=== PATIENT | male | born 1940 | race Caucasian/White ===

== ENCOUNTER 2018-05-10 07:50 | Day surgery (SDC) | payer MEDICARE, BC ==
[~2018-05-10 07:50] MED LIST: DIPHENHYDRAMINE HCL 50 MG/ML VIAL ONE; EPINEPHRINE INJ 1 MG/10 ML DISP.SYRIN ONE; FLUMAZENIL INJ 0.5 MG/5 ML VIAL ONE; GLUCAGON,HUMAN RECOMB 1 MG INJ ONE; NALOXONE HCL INJ/PF 0.4 MG/1 ML SDV ONE; ONDANSETRON HCL INJ/PF 4 MG/2 ML SDV ONE
[2018-05-10] MEDS: MIDAZOLAM 2 MG/2 ML INJ ONE ×3 (09:00→09:16)
[2018-05-10] MEDS: FENTANYL CITRATE INJ/PF 100 MCG/2 ML AMPUL ONE ×2 (09:02→09:10)
--- NOTE | 2018-05-10 09:43 | Discharge Summary ---
Discharge Summary (SDC) - Discharge Final Diagnosis: 1. Remote history of colon polyps 2. Normal colonoscopy Date of Surgery: 05/10/18 Discharge Date: 05/10/18 Condition: Good Treatment or Instructions: [place] [id number] POST ENDOSCOPY DISCHARGE INSTRUCTIONS 1. Diet: Start clear liquids that a regular diet as tolerated. 2. Resume all preoperative medications. All oral anticoagulants and aspirins can be resumed 24 hours after procedure. 3. If a polypectomy was performed some bleeding per rectum may occur. This should stop within 3 days. If not, please contact the office. 4. If you had a colonoscopy you may experience some bloating and delayed return of normal bowel function for several days, your regular bowel movement pattern should resume within a week. 5. Please contact [facility] at to make an appointment with Dr. Gao for 1 to 3 weeks following procedure. 6. If you have any questions or concerns regarding your care,treatment plan or follow up, please contact our office. 7. Per clinical guidelines we recommend you undergo a repeat colonoscopy in 10 years or to be determined Referrals: RHONDA MOODY MD [Primary Care Provider] - Discharge Diet: As Tolerated Discharge Activity: Activity As Tolerated, Balance Activity w/Rest, No Driving Home Care Assistance: None Needed Report the Following to Your Physician Immediately: Shortness of Breath, Nausea , Vomiting, Increase in Pain, Fever over 101 Degrees, Unusual Bleeding, Increased Soreness, Large Clots, IV Site Infection Signs
--- NOTE | 2018-05-10 09:46 | Operative Report ---
Operative Report DATE OF SURGERY: 05/10/18 PREOPERATIVE DIAGNOSIS: Remote history of colon polyps POSTOPERATIVE DIAGNOSIS: Normal colonoscopy to cecum OPERATION: Total colonoscopy to cecum SURGEON: ASH MCCLAIN ANESTHESIA: Moderate Sedation TISSUE REMOVED OR ALTERED: None COMPLICATIONS: None ESTIMATED BLOOD LOSS: None INTRAOPERATIVE FINDINGS: Low PROCEDURE: Obtaining informed consent the patient was taken from the preoperative holding area to the main endoscopy suite where monitoring devices were attached to the patient. Plan and surgical timeout were conducted The patient was placed in the left lateral decubitus position with knees to chest. A perianal examination was performed. There was no visible or palpable anorectal pathology. Sphincter tone was felt to be normal. The flexible adult colonoscope was advanced through the anal rectal canal, all the way to the cecum. Visualization of the cecum was achieved and the ileocecal valve, the appendiceal orifice and transillumination of the anterior abdominal wall. This was a somewhat redundant colon. This was an excellent study on the well-prepped bowel. The colonoscope was withdrawn slowly and methodically checked and the mucosa carefully. There was no evidence of tumor, stricture, bleeding or polyp. There was no evidence of diverticuloses. The scope was slowly withdrawn through the anal rectal canal. Complete visualization of the rectum was achieved with photodocumentation. The scope was withdrawn to the patient's anus. The patient tolerated the procedure well and was taken to the recovery area in stable condition. Follow-up colonoscopy in 10 years, or determined by patient state of health at age 88
[2018-05-10 10:42] VITALS: BP 97/56
== END 2018-05-10 10:35 | disposition home or self-care (01) ==
LOC: END 07:50
PROVIDERS: ATTEND Surgery
DX: K62.5 Hemorrhage of anus and rectum (principal); Z86.010 Personal history of colon polyps; E03.9 Hypothyroidism, unspecified; Z79.899 Other long term (current) drug therapy; Z79.82 Long term (current) use of aspirin
CPT/HCPCS: 45378; J2250; J3010; G0121; J0171; J1200; J1610; J2310; J2405; J3490

== ENCOUNTER 2018-12-26 05:13 | Day surgery (SDC) | payer MEDICARE, BC ==
[2018-12-20 10:23] LABS: HEMATOCRIT 44.7 % (37.9-51.0); HEMOGLOBIN 15.6 g/dL (13.5-17.0); MEAN CORPUSCULAR HEMOGLOBIN 33.6 pg (27.0-33.4); MEAN CORPUSCULAR VOLUME 96 fl (80-97); PLATELET COUNT 157 10^3/uL (150-450); RED BLOOD COUNT 4.65 10^6/uL (4.35-5.55); RED CELL DISTRIBUTION WIDTH 13.3 % (11.5-14.0); WHITE BLOOD COUNT 4.7 10^3/uL (4.0-10.5)
[2018-12-20 10:43] LABS: ALANINE AMINOTRANSFERASE 22 U/L (21-72); ALBUMIN 4.8 g/dL (3.5-5.0); ALKALINE PHOSPHATASE 72 U/L (38-126); AMYLASE 64 U/L (30-110); ANION GAP 9 (5-19); ASPARTATE AMINO TRANSFERASE 36 U/L (17-59); BILIRUBIN,DIRECT 0.3 mg/dL (0.0-0.4); BILIRUBIN,TOTAL 1.1 mg/dL (0.2-1.3); BLOOD UREA NITROGEN 16 mg/dL (7-20); CALCIUM 9.8 mg/dL (8.4-10.2); CARBON DIOXIDE 27 mmol/L (22-30); CHLORIDE 108 mmol/L (98-107); GLUCOSE 89 mg/dL (75-110); POTASSIUM 4.9 mmol/L (3.6-5.0); TOTAL PROTEIN 7.7 g/dL (6.3-8.2)
--- NOTE | 2018-12-20 13:20 | EKG REPORT ---
SEVERITY:- OTHERWISE NORMAL ECG - SINUS RHYTHM VENTRICULAR PREMATURE COMPLEX LOW VOLTAGE IN FRONTAL LEADS : Confirmed by: Jordan Gama MD 20-Dec-2018 13:20:08
[~2018-12-26 05:13] MED LIST changes: +ACETAMINOPHEN 325 MG TABLET PO PRN; +CEFAZOLIN 1 GM/D5W RTU 1 GM/50 ML RTUPB IV ONE; +CEFAZOLIN 1 GM/D5W RTU 1 GM/50 ML RTUPB IV PRN; -DIPHENHYDRAMINE HCL 50 MG/ML VIAL ONE; -EPINEPHRINE INJ 1 MG/10 ML DISP.SYRIN ONE; -FLUMAZENIL INJ 0.5 MG/5 ML VIAL ONE; -GLUCAGON,HUMAN RECOMB 1 MG INJ ONE; +LACTATED RINGERS 1000 ML IV PRN; +LIDOCAINE 0.5% INJ-PF (5 MG/ML) 50 ML SDV SUBCUT PRN; -NALOXONE HCL INJ/PF 0.4 MG/1 ML SDV ONE; -ONDANSETRON HCL INJ/PF 4 MG/2 ML SDV ONE
[2018-12-26] MEDS ORDERED: FENTANYL CITRATE INJ/PF 100 MCG/2 ML AMPUL ONE (06:40)
[2018-12-26] MEDS ORDERED: MIDAZOLAM 2 MG/2 ML INJ ONE (06:40)
[2018-12-26] MEDS ORDERED: PROMETHAZINE HCL INJ 25 MG/1 ML VIAL ONE (06:40)
[2018-12-26] MEDS ORDERED: EPHEDRINE SULFATE INJ 50 MG/1 ML AMPULE ONE (06:40)
[2018-12-26] MEDS ORDERED: LIDOCAINE 2% INJ-PF (20 MG/ML) 10 ML AMPUL ONE (06:40)
[2018-12-26] MEDS ORDERED: ONDANSETRON HCL INJ/PF 4 MG/2 ML SDV ONE (06:40)
[2018-12-26] MEDS ORDERED: ACETAMINOPHEN 1,000 MG/100 ML RTUPB IV ONE (06:41)
[2018-12-26] MEDS ORDERED: PROPOFOL INJ 200 MG/20 ML VIAL IV ONE (06:41)
[2018-12-26] MEDS ORDERED: BUPIVACAINE HCL 0.25 % INJ/PF (2.5 MG/1 ML) 30 ML VIAL ONE (07:15)
[2018-12-26] MEDS ORDERED: MEPERIDINE HCL/PF INJ 25 MG/1 ML DISP.SYRIN IV PRN (08:06)
[2018-12-26] MEDS ORDERED: PROMETHAZINE HCL INJ 25 MG/1 ML VIAL IV PRN ×2 (08:06)
[2018-12-26] MEDS ORDERED: ROCURONIUM BROMIDE INJ 50 MG/5 ML VIAL IV ONE (08:06)
[2018-12-26] MEDS ORDERED: FENTANYL CITRATE INJ/PF 100 MCG/2 ML AMPUL IV PRN ×3 (08:06)
[2018-12-26] MEDS ORDERED: DIPHENHYDRAMINE HCL 50 MG/ML VIAL IV PRN (08:06)
[2018-12-26] MEDS ORDERED: MORPHINE SULFATE 10 MG/ML INJ IV PRN (08:06)
[2018-12-26] MEDS ORDERED: SUCCINYLCHOLINE CHLORIDE INJ 200 MG/10 ML VIAL ONE (08:06)
[2018-12-26] MEDS ORDERED: HYDROMORPHONE HCL INJ/PF 2 MG/ML AMPULE ONE (08:58)
--- NOTE | 2018-12-26 09:44 | Discharge Summary ---
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 General Information: a. DO NOT DRIVE a car or operate dangerous machinery for 3-4 days or while taking narcotic pain pills. b. DO NOT consume alcohol, tranquilizers, sleeping medications or any non- prescribed medications for 24 hours unless approved by your doctor or as long as taking narcotic prescription medications. c. DO NOT make important decisions or sign any important papers for the first 24 hours after surgery. d. When discharged home the same day of surgery have a responsible person with you for the first night. 2. Activity Restrictions: 2 weeks weeks. a. NO heavy lifting, straining abdominal muscles, bending over a lot, yard work, house work, or sports for [address] NOT [address] for 3-4 days or while taking prescription pain medication. c. It is fine to go for walks, up and down steps, ride in a car. d. Elevate your head when sleeping/resting. 3. Treatment: a. You may shower 24 hours after surgery, no baths or swimming for 2 weeks. Remove band-aids or dressings before shower but leave paper strips (steri- strips) on the skin to fall off on their own. If still on at postoperative visit they will be removed then. b. Drainage of fluid or blood is not unusual from an incision. If occurs, you can clean with peroxide and cotton ball daily and cover with dry gauze until the wound seals. c. If a lot of bleeding occurs, you can hold pressure with a gauze or cloth over the site for 10 minutes and it will usually stop. If bleeding continues you will need to call for possible evaluation in office or emergency room. 4. Medications: a. _Tramadol_ may be taken for pain as needed, one tablets every 6 hours. Stop the narcotic when able since you cannot take it and drive, and they cause constipation. You may switch to plain Tylenol as you transition from the narcotic. b. You should resume all normal medications unless a change is specified by your doctors. 5. Diet: Begin with clear liquids and may progress to your normal diet if not nauseated. No high fat, high protein foods the day of surgery. 6. The following may occur after laparoscopic surgery: a. Shoulder or upper back ache from retained gas that should resolve in 1-2 days b. Soreness and bruising at incision sites will resolve with time. c. Scrotal swelling (labia in women) and bruising is often seen after hernia surgery. d. Sore throat e. Fatigue may last days to weeks. f. Difficulty urinating may occur and may need to come into emergency room for urinary catheter placement. 7. Notify Physician If: a. Worsening or pain not improved with pain medication b. Persistent nausea and vomiting c. Fever above 101 d. Persistent bleeding or swelling at operative site e. Unable to urinate and uncomfortable bladder 6-8 hours after surgery 8..Follow Up Care: a. Schedule a follow up appointment with your doctor for 2 weeks. In the event of any postoperative problems or questions or you may call the office during business hours or the On-Call physician evenings and weekends at [facility]. [facility] I understand the instructions for my postoperative care as described above and a copy has been given to me. Patient/Significant Other Witness Date Prescriptions: Tramadol HCl [Ultram 50 mg Tablet] 50 mg PO Q6 PRN #20 tablet PRN Reason: Referrals: RANDI CANCHOLA MD [Primary Care Provider] - Discharge Diet: Other (Comments) - Small bland portions Discharge Activity: No Lifting Over 10 Pounds, No Lifting/Push/Pulling, Walk Frequently Report the Following to Your Physician Immediately: Nausea, Vomiting, Increase in Pain, Fever over 101 Degrees, Unusual Bleeding, Redness, Swelling, Warmth, Drainage-Foul Smelling
[2018-12-26] MEDS ORDERED: OXYCODONE-ACETAMINOPHEN 5-325 MG TABLET PO PRN (09:50)
--- NOTE | 2018-12-26 10:01 | Operative Report ---
Operative Report DATE OF SURGERY: 12/26/18 PREOPERATIVE DIAGNOSIS: 1. Cholecystitis with cholelithiasis. 2. Regurgitati on. 3. 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 Laparoscopic cholecystectomy. 2. Esophagogastroduodenoscopy, with biopsies of the distal esophagus, proximal stomach, distal stomach. 3. Extramural biopsies of the proximal stomach, lesser curve SURGEON: ASH GAO 1ST PLACEMENT MANAGER: PAUL MAXWELL ANESTHESIA: GA TISSUE REMOVED OR ALTERED: Gallbladder; multiple mucosal biopsies of the esophagus and stomach; serosal biopsies of the proximal stomach COMPLICATIONS: None ESTIMATED BLOOD LOSS: 5 cc INTRAOPERATIVE FINDINGS: See below PROCEDURE: After obtaining informed consent, the patient was taken to the operating room. General Anesthesia was induced; the arms were extended, and the abdomen was exposed, and prepped and draped in a sterile fashion. Instrumentation was set up for laparoscopic cholecystectomy. Surgical plan and surgical timeout were conducted. A vertical incision was made above the umbilicus, and a verres needle was inserted uneventfully into the peritoneal cavity. Pneumoperitoneum was established. The verres needle was removed and a 5 mm trocar was inserted and a 5 mm flexible laparoscope was inserted. Visualization of the peritoneal cavity confirmed safe uneventful entry. Under direct visualization 3 additional 5 mm ports were established, one in the subxiphoid position and second in the subcostal position. The findings were significant for a very scarred and shrunken somewhat lobulated small gallbladder. Photos were taken. Adhesions between the gallbladder and the gastroduodenal area down between a combination of gentle traction and electrocautery dissection. The gallbladder was now removed in a top down fashion using electrocautery. There was no evidence of neovascularity or true mass-effect to suggest malignancy. Of note the right and left lobes of the gallbladder aged but otherwise normal. Eventually the gallbladder was suspended by the cystic artery and the cystic duct. Multiple photos were taken. We got around the critical structures in a circumferential fashion. The cystic artery was mobilized, clipped twice proximally once distally divided with scissors. We now have the specimen suspended solely by the cystic duct. Because of its moderately thickened caliber, we elected to secure the duct with a 0 PDS loop suture. The duct was divided. Photos of the cystic duct and artery stumps obtained. The gallbladder was then placed in Endobag and brought out the patient to the supraumbilical port site after stretching the fascial defect We checked the peritoneal Cavity carefully looking for any evidence of metastatic disease. Serosal surfaces of the viscera, and parietal surfaces all appeared normal. The pelvis was inspected with the patient in Trendelenburg position and there is no pathology here. There were some adhesions between the sigmoid colon and the anterior abdominal wall. However the significant findings were of a distorted stomach, particularly the lesser curvature going from the GE junction down to the pylorus. Multiple photos were taken. It was difficult to ascertain whether the mass was endoluminal, and mural, or even retrogastric. An attempt was made to elevate the gastrocolic omentum, and inspect the posterior surface of the stomach but we encountered some bleeding so this approach was aborted. Dr. Gao now scrubbed down proceeded to perform the planned upper endoscopy. The adult flexible upper endoscope was advanced to the oropharynx by Dr. Gao, down the esophagus into the stomach and eventually into the duodenum. The findings are significant for very distorted distal esophagus at the GE junction, and diffuse edema, with irregularity of the stomach lining particularly along the lesser curve. Biopsies of the lesser curve proximally and distally were obtained with a cold forceps device and labeled proximal di stal gastric antrum. There was no true intraluminal mass or polyp. There was some retained gastric contents. Traversing the pylorus was somewhat challenging but eventually got through the pylorus into the first and second portions of the duodenum. The pylorus distally, and going into the duodenum all appeared unaffected by probable malignancy. There was no true obstruction of the pylorus. Multiple photos of the stomach were obtained. The duodenum and stomach were decompressed. Withdrawn the scope to the GE junction which had an irregular ratty appearance, we obtained a cold forceps biopsy of the mucosa. Eating was minimal. The abnormality of the distal esophagus extended several centimeters proximally, then the mid and proximal thirds of the stomach appeared grossly normal. There is no evidence of varices. The hypopharynx, and the larynx appeared grossly scope was withdrawn. We now returned to the abdominal cavity with our laparoscope. Dr. Parker came into the operating room and rendered an opinion with regards to the intraoperative findings. He suggested the patient likely had gastric cancer, lienitis plastica, and recommended extraluminal, that is serosal biopsies of the affected areas. Using the sharp, biting RATING OFFICER [employer] forceps, we obtained multiple cold forceps biopsies of the proximal, lesser curve, anterior surface of the stomach at the site of the most affected pathology. Bleeding was minimal. One small specimen was sent for frozen section, and the rest of the small pieces sent for permanent analysis. At this point felt the operation was complete. Of note the stroke curve, and retroperitoneum, had a very fixed configuration photos were taken of this area. The tissue was very tethered along the peritoneal fat on top of the pancreas. Sponge and needle counts are correct. All ports removed under direct visualization, pneumoperitoneum evacuated wounds closed with 0 Vicryl 3-0 Vicryl benzoin and Steri-Strips. The patient was extubated, and taken to the recovery room in stable condition. At the conclusion of the operation, we did get a phone call from Dr. Poe, the pathologist, who analyzed the frozen section specimen and reviewed with Dr. Hooper. The consensus was a poorly differentiated malignancy.
[2018-12-26 13:30] VITALS: BP 134/82
== END 2018-12-26 12:30 | disposition home or self-care (01) ==
LOC: OROUT 05:13
PROVIDERS: ATTEND Surgery
DX: C16.5 Malignant neoplasm of lesser curvature of stomach, unspecified (principal); C16.0 Malignant neoplasm of cardia; K80.10 Calculus of gallbladder with chronic cholecystitis without obstruction; D13.5 Benign neoplasm of extrahepatic bile ducts; K29.50 Unspecified chronic gastritis without bleeding; K62.5 Hemorrhage of anus and rectum; E03.9 Hypothyroidism, unspecified; Z79.899 Other long term (current) drug therapy
CPT/HCPCS: 93010; 93005; 36415 ×2; 82150; 84132; 85027; 80076; 80048; 88342 ×2; 88341 ×2; 88304 ×2; 88305 ×2; 88331 ×2; 43239; 47562; J2250; J0690; J3490 ×3; J3010; J1170; J2550; J0330; J2405; J2704; J0131; 790

== ENCOUNTER → 2018-12-28 | Outpatient (CLI) | payer MEDICARE, BC ==
--- NOTE | 2018-12-28 14:37 | RADIOLOGY REPORT (SQ) ---
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 TECHNIQUE: CT scan of the chest performed using helical scanning technique with dynamic intravenous contrast injection. Images reviewed with lung, soft tissue and bone windows. Reconstructed coronal and sagittal MPR and MIP images reviewed. All images stored on PACS. All CT scanners at this facility use dose modulation, iterative reconstruction, and/or weight based d osing when appropriate to reduce radiation dose to as low as reasonably achievable (ALARA). [facility]: Dose Right [facility]: CareDose [facility]: Dose Right [facility]: Teradose 4D [facility]: [employer] CONTRAST TYPE AND DOSE: See separate report of the same date. RENAL FUNCTION: See separate report. RADIATION DOSE: . LIMITATIONS: None. FINDINGS: LUNGS AND PLEURA: 6 mm nodule in the right apex. No effusions. HILAR AND MEDIASTINAL STRUCTURES: Patulous esophagus. Gastroesophageal reflux. No identified masses or abnormal nodes. HEART AND VASCULAR STRUCTURES: No aneurysm or dissection. No central pulmonary emboli. No pericardi al effusion. HARDWARE: None in the chest. UPPER ABDOMEN: See separate report of the CT of the abdomen. THYROID AND OTHER SOFT TISSUES: No masses. No adenopathy. BONES: Nothing acute. OTHER: No other significant finding. IMPRESSION: 6 mm right apical pulmonary nodule. TECHNICAL DOCUMENTATION: JOB ID: [id number] Quality ID # [id number]: Final reports with documentation of one or more dose reduction techniques (e.g., Au tomated exposure control, adjustment of the mA and/or kV according to patient size, use of iterative reconstruction technique) 2010 [employer]- All Rights Reserved Reading location - IP/workstation name: [email or web address]-
--- NOTE | 2018-12-28 14:42 | RADIOLOGY REPORT (SQ) ---
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 TECHNIQUE: CT scan of the abdomen and pelvis performed with intravenous and oral contrast using jazmín maricruz scanning technique with dynamic intravenous contrast injection. Images reviewed with lung, soft t issue, and bone windows. Reconstructed coronal and sagittal MPR images reviewed. Delayed images for e valuation of the urinary system also acquired. All images stored on PACS. All CT scanners at this facility use dose modulation, iterative reconstruction, and/or weight based d osing when appropriate to reduce radiation dose to as low as reasonably achievable (ALARA). [facility]: Dose Right [facility]: CareDose [facility]: Dose Right [facility]: Teradose 4D [facility]: [employer] CONTRAST TYPE AND DOSE: contrast/concentration: Isovue 350.00 mg/ml; Total Contrast Delivered: 73.0 ml; Total Saline Delivered: 66.0 ml RENAL FUNCTION: GFR > 60. RADIATION DOSE: CT Rad equipment meets quality standard of care and radiation dose reduction techniq ues were employed. CTDIvol: 4.4 - 4.6 mGy. DLP: 691 mGy-cm. . LIMITATIONS: None. FINDINGS: LOWER CHEST: Known abnormality in the distal esophagus. See separate report of the same d ate. LIVER: Normal size. No masses. No dilated ducts. SPLEEN: Normal size. No focal lesions. PANCREAS: No masses. No significant calcifications. No adjacent inflammation or peripancreatic fluid collections. Pancreatic duct not dilated. GALLBLADDER: Surgically absent. ADRENAL GLANDS: No significant masses or asymmetry. RIGHT KIDNEY AND URETER: No solid masses. No significant calcifications. No hydronephrosis or hyd roureter. LEFT KIDNEY AND URETER: No solid masses. No significant calcifications. No hydronephrosis or hydr oureter. AORTA AND VESSELS: No aneurysm. No dissection. Renal arteries, SMA, celiac without stenosis. RETROPERITONEUM: No retroperitoneal adenopathy, hemorrhage or masses. BOWEL AND PERITONEAL CAVITY: Pneumoperitoneum status post recent laparoscopic surgery with biopsies o f the gastroesophageal junction and lesser curvature of the stomach. No ascites. No peritoneal impl ants. APPENDIX: Not visualized. PELVIS: No significant masses. Normal bladder. No free fluid. ABDOMINAL WALL: Subcutaneous gas. BONES: Nothing acute. OTHER: No other significant finding. IMPRESSION: No evidence of metastatic disease. TECHNICAL DOCUMENTATION: JOB ID: [id number] Quality ID # [id number]: Final reports with documentation of one or more dose reduction techniques (e.g., Au tomated exposure control, adjustment of the mA and/or kV according to patient size, use of iterative reconstruction technique) 2010 [employer]- All Rights Reserved Reading location - IP/workstation name: [email or web address]
== END ==
LOC: RAD 13:14
PROVIDERS: ATTEND Surgery
DX: C16.9 Malignant neoplasm of stomach, unspecified (principal); R91.1 Solitary pulmonary nodule
CPT/HCPCS: 71260; 74177

== ENCOUNTER → 2019-01-06 | Outpatient (CLI) | payer MEDICARE, BC ==
--- NOTE | 2019-01-07 10:15 | RADIOLOGY REPORT (SQ) ---
EXAM DESCRIPTION: PET CT SKULL/THIGH COMPLETED DATE/TIME: 01/06/2019 8:04 pm REASON FOR STUDY: CARDIA NEOPLASM C16.0 MALIGNANT NEOPLASM OF CARDIA COMPARISON: CT chest abdomen pelvis 12/28/2017 RADIONUCLIDE AND DOSE: 11.9 mCi F18 FDG The route of agent administration: Intravenous FASTING BLOOD SUGAR: 81 mg/dl CONTRAST TYPE AND DOSE: No CT contrast given. TECHNIQUE: Blood glucose level was verified. Above dose of FDG was injected intravenously. 2-D seg mented attenuation correction images were obtained from the base of the skull to the midthighs. Nonc ontrast CT images were obtained for attenuation correction and fusion with emission images. CT image s were performed without oral or intravenous contrast and are not sensitive for parenchymal lesions. A series of overlapping emission PET images were obtained. Images reviewed and manipulated at [facility] work station by the radiologist. Images stored on PACS. LIMITATIONS: None. FINDINGS: HEAD AND NECK: No areas of abnormal metabolic activity in the soft tissues of the head and neck. CHEST: There is diffuse abnormal circumferential wall thickening and luminal narrowing of the distal esophagus at at the esophageal hiatus, extending into the gastric cardia. Increased activity of the distal esophagus/gastric cardia with SUV 2.1 to 3.4 worrisome for malignancy. There is a punctate fo cus of increased activity 4.9 SUV at the GE junction which could represent more aggressive focal tumo r, or possibly small mucosal ulceration with inflammatory reaction. No metabolically active lymph nodes in the mediastinum or upper abdomen in the region of the GE junct ion. There is an air-fluid level in the esophagus related to distal esophageal stenosis. 7 to 8 mm scar is present in the right lung apex axial image 76, with SUV below blood pool of 0.5. ABDOMEN AND PELVIS: There is minimal activity at the gallbladder fossa, along the liver adjacent to t he surgical bed with SUV 4.9. Patient is post recent cholecystectomy. This is of uncertain clinical significance. Expected physiologic activity is present in the genitourinary system and bowel. PROXIMAL LOWER EXTREMITIES: No areas of abnormal metabolic activity in the soft tissues of the lower extremities. BONES: No abnormal metabolic activity in the visualized skeleton. ADDITIONAL CT FINDINGS: No additional significant findings on the noncontrast CT images. OTHER: Liver background activity 1.8 SUV. Blood pool background activity 1.6 SUV. IMPRESSION: Malignancy at the GE junction/ gastric cardia. No hypermetabolic regional lymph nodes. No PET-CT evidence of distant metastatic disease. TECHNICAL DOCUMENTATION: JOB ID: [id number] [employer]- All Rights Reserved Reading location - IP/workstation name: [email or web address]
== END ==
LOC: RAD 17:24
PROVIDERS: ATTEND Internal Medicine
DX: C16.0 Malignant neoplasm of cardia (principal)
CPT/HCPCS: 78815; A9552

== ENCOUNTER 2019-01-17 08:23 | Day surgery (SDC) | payer MEDICARE, BC ==
[~2019-01-17 08:23] MED LIST changes: -CEFAZOLIN 1 GM/D5W RTU 1 GM/50 ML RTUPB IV ONE; -LACTATED RINGERS 1000 ML IV PRN; -LIDOCAINE 0.5% INJ-PF (5 MG/ML) 50 ML SDV SUBCUT PRN
[2019-01-17] MEDS ORDERED: CEFAZOLIN 1 GM/D5W RTU 1 GM/50 ML RTUPB IV ONE (08:29)
[2019-01-17 08:47] LABS: HEMATOCRIT 40.9 % (37.9-51.0); HEMOGLOBIN 14.3 g/dL (13.5-17.0); MEAN CORPUSCULAR VOLUME 97 fl (80-97); PLATELET COUNT 159 10^3/uL (150-450); RED BLOOD COUNT 4.21 10^6/uL (4.35-5.55); RED CELL DISTRIBUTION WIDTH 13.4 % (11.5-14.0); WHITE BLOOD COUNT 5.7 10^3/uL (4.0-10.5)
[2019-01-17] MEDS ORDERED: BACITRACIN INJ 50,000 UNIT VIAL ONE (10:16)
[2019-01-17] MEDS ORDERED: LIDOCAINE 0.5% INJ-PF (5 MG/ML) 50 ML SDV ONE (10:16)
[2019-01-17] MEDS ORDERED: FENTANYL CITRATE INJ/PF 100 MCG/2 ML AMPUL ONE (10:29)
[2019-01-17] MEDS ORDERED: MIDAZOLAM 2 MG/2 ML INJ ONE (10:29)
--- NOTE | 2019-01-17 12:12 | Discharge Summary ---
Discharge Summary (SDC) - Discharge Final Diagnosis: Gastric carcinoma Date of Surgery: 01/17/19 Discharge Date: 01/17/19 Condition: Good Treatment or Instructions: Patient may use catheter at any time; return to clinic to follow-up with LAURA Schaeffer in 1-2 weeks; may shower in 48 hours; Steri-Strips to fall off on own; take Tylenol or Motrin as needed pain Referrals: RANDI CANCHOLA MD [Primary Care Provider] - Discharge Activity: Activity As Tolerated Home Care Assistance: None Needed Report the Following to Your Physician Immediately: Shortness of Breath, Increase in Pain, Fever over 101 Degrees
--- NOTE | 2019-01-17 12:15 | Operative Report ---
Operative Report DATE OF SURGERY: 01/17/19 PREOPERATIVE DIAGNOSIS: Gastric carcinoma POSTOPERATIVE DIAGNOSIS: Same OPERATION: 1. Focused ultrasound of the right neck. 2. Ultrasound directed insertion of single-lumen Soovcl-b-Wgkz catheter with port in right subclavian p osition. 3. interpretation of intraoperative fluoroscopy SURGEON: ASH MCCLAIN ANESTHESIA: Moderate Sedation TISSUE REMOVED OR ALTERED: See below COMPLICATIONS: None ESTIMATED BLOOD LOSS: Scant INTRAOPERATIVE FINDINGS: See below PROCEDURE: The patient was taken from the ambulatory surgery area to the cardiac catheterization lab where appropriate level of sedation was initiated with the patient in the supine position after vital signs assessed. The right neck and chest wall were prepped and draped in sterile fashion. Surgical plan surgical timeout were conducted. The right neck was anesthetized with 1% plain lidocaine. Using Seldinger technique with ultrasound as a guide, the right internal jugular difficulty and a micro wire threaded into position A suitable site for placement of the port was then chosen in the right subclavian position. The skin was anesthetized with 1% plain lidocaine, 3 and half centimeters incision was made with the 15 blade, and the deep subcutaneous port pocket developed large enough to accommodate a single-chamber port using electrocautery and blunt dissection. The single lumen 9 Cypriot catheter was trimmed to the appropriate length, tunneled between the 2 incisions, attached to the port, and the port tucked into the right subclavian position. The micro wire was now switched over to conventional 0.030 wire using the micro- introducer sheath. Now under fluoroscopic guidance, the dilator and sheath were threaded over the guidewire, dilator and wire removed, catheter threaded into the right internal jugular vein, and strip away sheath removed uneventfully. Fl uoroscopically the tip of the catheter was in the right atrium. There was no evidence of ectopy. There is no kinking of the catheter. Catheter was aspirated and flushed with dilute heparinized saline. Wounds closed with multiple 3-0 Vicryl sutures, benzoin and Steri-Strips. Patient tolerated procedure well. Supine chest x-ray obtained for the record showing no pneumothorax. Patient was recovered in the ambulatory area uneventfully
[2019-01-17 13:39] VITALS: BP 133/78
--- NOTE | 2019-01-17 15:16 | RADIOLOGY REPORT (SQ) ---
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 FLUOROSCOPY TIME: Less than 3 seconds 1 digital radiographic images saved to PACS. TECHNIQUE: Intra-operative images acquired during surgical procedure to evaluate progress. NUMBER OF IMAGES: 1 digital fluoro image LIMITATIONS: None. FINDINGS: 1 digital fluoro image was acquired during placement of a right-sided permanent central li ne with the tip in the superior vena cava. Please see the operative report for further details IMPRESSION: Intra procedural imaging and fluoro COMMENT: Quality ID [id number]: Final reports for procedures using fluoroscopy that document radiation exp osure indices, or exposure time and number of fluorographic images (if radiation exposure indices are not available) Please consult full operative report of the attending physician for description of the procedure. TECHNICAL DOCUMENTATION: JOB ID: [id number] [employer] All Rights Reserved Reading location - IP/workstation name: [email or web address]
--- NOTE | 2019-01-17 15:16 | RADIOLOGY REPORT (SQ) ---
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 FLUOROSCOPY TIME: Less than 3 seconds 1 digital radiographic images saved to PACS. TECHNIQUE: Intra-operative images acquired during surgical procedure to evaluate progress. NUMBER OF IMAGES: 1 digital fluoro image LIMITATIONS: None. FINDINGS: 1 digital fluoro image was acquired during placement of a right-sided permanent central li ne with the tip in the superior vena cava. Please see the operative report for further details IMPRESSION: Intra procedural imaging and fluoro COMMENT: Quality ID [id number]: Final reports for procedures using fluoroscopy that document radiation exp osure indices, or exposure time and number of fluorographic images (if radiation exposure indices are not available) Please consult full operative report of the attending physician for description of the procedure. TECHNICAL DOCUMENTATION: JOB ID: [id number] [employer]- All Rights Reserved Reading location - IP/workstation name: [email or web address]
== END 2019-01-17 13:10 | disposition home or self-care (01) ==
LOC: CCL 08:23
PROVIDERS: ATTEND Surgery
DX: C16.0 Malignant neoplasm of cardia (principal); R11.10 Vomiting, unspecified; E03.9 Hypothyroidism, unspecified; K62.5 Hemorrhage of anus and rectum; Z40.9 Encounter for prophylactic surgery, unspecified; Z86.010 Personal history of colon polyps; Z01.818 Encounter for other preprocedural examination; Z79.899 Other long term (current) drug therapy
CPT/HCPCS: 36415; 85027; 36561; 76937; 77001; C1752; J2250; J3490 ×2; J0690; J3010; J1644

== ENCOUNTER → 2019-04-25 | Outpatient (CLI) | payer MEDICARE, BC ==
--- NOTE | 2019-04-25 12:55 | RADIOLOGY REPORT (SQ) ---
EXAM DESCRIPTION: HIP BILATERAL COMPLETED DATE/TIME: 04/25/2019 12:08 pm REASON FOR STUDY: M25.559 COMPARISON: None. NUMBER OF VIEWS: Two views. TECHNIQUE: AP pelvis and additional frog-leg view of the right and left hip. LIMITATIONS: None. FINDINGS: MINERALIZATION: Normal. PRIMARY HIP: No fracture or dislocation. No worrisome bone lesions. OPPOSITE HIP: No fracture or dislocation. No worrisome bone lesions. PUBIS AND ISCHIUM: No fracture. PELVIS: No fracture. SACRUM: No fracture or dislocation. No worrisome bone lesions. LOWER LUMBAR SPINE: No fracture or dislocation. No worrisome bone lesions. No significant disc disea se. SOFT TISSUES: No findings. OTHER: No other significant finding. IMPRESSION: NEGATIVE STUDY OF THE RIGHT AND LEFT HIPS AND PELVIS. NO RADIOGRAPHIC EVIDENCE OF ACUTE INJURY. TECHNICAL DOCUMENTATION: JOB ID: [id number] [employer]- All Rights Reserved Reading location - IP/workstation name: [email or web address]
== END ==
LOC: RAD 11:34
PROVIDERS: ATTEND Internal Medicine
DX: M25.559 Pain in unspecified hip (principal)
CPT/HCPCS: 73522

== ENCOUNTER 2019-07-04 12:58 | Emergency (ER) | payer MEDICARE, BC ==
[2019-07-04] MEDS ORDERED: NORMAL SALINE 1000 ML 1,000 ML IV ONE ×2 (13:20→17:24)
[2019-07-04] MEDS ORDERED: ONDANSETRON HCL INJ/PF 4 MG/2 ML SDV IV ONE (13:20)
--- NOTE | 2019-07-04 13:21 | ER Document Report ---
ED Medical Screen (RME) - General Chief Complaint: Post Surgical Pain Stated Complaint: POST SURGICAL COMPLICATION Time Seen by Provider: 07/04/19 13:15 Primary Care Provider: RANDI CANCHOLA MD [Primary Care Provider] - Follow up as needed Mode of Arrival: Ambulatory Information source: Patient Notes: Patient is a 71-year-old male with stomach cancer presenting to the emergency department chief complaint of vomiting. Patient reports he was discharged yesterday from [place] after having part of his stomach removed and part of his esophagus removed for cancer. He reports he started dry heaving and then vomiting early this morning. He has not taken any medication for this. Exam: Patient appears pale, no acute distress noted. Speaking in full complete sentences, answering all questions appropriately. No active vomiting noted in triage. I have greeted and performed a rapid initial assessment of this patient. A comprehensive ED assessment and evaluation of the patient, analysis of test results and completion of the medical decision making process will be conducted by additional ED providers. I have specifically instructed the patient or family members with the patient to immediately return to any nursing staff should anything change in the patient's condition or with their chief complaint. This medical record was dictated with voice recognizing software. There may be grammatical, syntax errors that are unintended. TRAVEL OUTSIDE OF THE [place] IN LAST 30 DAYS: No - Related Data Allergies/Adverse Reactions: No Known Allergies Allergy (Verified 12/26/18 06:37) Past Medical History - Social History Chew tobacco use (# tins/day): No Frequency of alcohol use: None Drug Abuse: None - Past Medical History Cardiac Medical History: Denies: Hx Coronary Artery Disease, Hx Heart Attack, Hx Hypertension Pulmonary Medical History: Denies: Hx Asthma, Hx Bronchitis - h/o frequent bronchitis, Hx COPD, Hx Pneumonia Neurological Medical History: Denies: Hx Cerebrovascular Accident, Hx Seizures Renal/ Medical History: Denies: Hx Peritoneal Dialysis GI Medical History: Denies: Hx Hepatitis, Hx Hiatal Hernia, Hx Ulcer Musculoskeltal Medical History: Denies Hx Arthritis Infectious Medical History: Denies: Hx Hepatitis Past Surgical History: Reports: Hx Abdominal Surgery - stomach/part of esophagus removed r/t cancer. Denies: Hx Open Heart Surgery, Hx Pacemaker - Immunizations Hx Diphtheria, Pertussis, Tetanus Vaccination: Yes History of Influenza Vaccine for 08/2017 - 01/2018 Season: Yes Influenza Administration Date for 08/2017 - 01/2018 Season: 09/19/18 Physical Exam - Vital signs Vitals: Temp Pulse Resp BP Pulse Ox 97.5 F 95 20 158/62 H 99 07/04/19 13:03 07/04/19 13:03 07/04/19 13:03 07/04/19 13:03 07/04/19 13:03 Course - Vital Signs Vital signs: Temp Pulse Resp BP Pulse Ox 97.5 F 95 20 158/62 H 99 07/04/19 13:03 07/04/19 13:03 07/04/19 13:03 07/04/19 13:03 07/04/19 13:03 Doctor's Discharge - Discharge Referrals: RANDI CANCHOLA MD [Primary Care Provider] - Follow up as needed
[2019-07-04 13:55] LABS: ABSOLUTE LYMPHOCYTES (AUTO) 0.5 10^3/uL (0.5-4.7); ABSOLUTE MONOCYTES (AUTO) 0.4 10^3/uL (0.1-1.4); ABSOLUTE NEUT (AUTO) 6.3 10^3/uL (1.7-8.2); BASOPHILS % (AUTO) 0.2 % (0-2); EOSINOPHILS % (AUTO) 0.5 % (0-6); HEMOGLOBIN 11.7 g/dL (13.5-17.0); LYMPHOCYTES % (AUTO) 7.3 % (13-45); MEAN CORPUSCULAR HEMOGLOBIN 33.8 pg (27.0-33.4); MEAN CORPUSCULAR HGB CONC 33.4 g/dL (32.0-36.0); MEAN CORPUSCULAR VOLUME 101 fl (80-97); PLATELET COUNT 286 10^3/uL (150-450); RED BLOOD COUNT 3.46 10^6/uL (4.35-5.55); RED CELL DISTRIBUTION WIDTH 14.3 % (11.5-14.0); TOTAL CELLS COUNTED % (AUTO) 100 %; WHITE BLOOD COUNT 7.3 10^3/uL (4.0-10.5)
[2019-07-04 14:13] LABS: ALBUMIN 4.1 g/dL (3.5-5.0); ALKALINE PHOSPHATASE 103 U/L (38-126); ANION GAP 13 (5-19); ASPARTATE AMINO TRANSFERASE 44 U/L (17-59); BILIRUBIN,DIRECT 0.3 mg/dL (0.0-0.4); BILIRUBIN,TOTAL 0.7 mg/dL (0.2-1.3); BLOOD UREA NITROGEN 11 mg/dL (7-20); CALCIUM 9.1 mg/dL (8.4-10.2); CARBON DIOXIDE 21 mmol/L (22-30); CHLORIDE 104 mmol/L (98-107); GLUCOSE 155 mg/dL (75-110); TOTAL PROTEIN 7.3 g/dL (6.3-8.2)
--- NOTE | 2019-07-04 15:09 | RADIOLOGY REPORT (SQ) ---
EXAM DESCRIPTION: CHEST SINGLE VIEW COMPLETED DATE/TIME: 07/04/2019 2:57 pm REASON FOR STUDY: vomiting, pain post surgery COMPARISON: None. EXAM PARAMETERS: NUMBER OF VIEWS: One view. TECHNIQUE: Single frontal radiographic view of the chest acquired. RADIATION DOSE: NA LIMITATIONS: None. FINDINGS: LUNGS AND PLEURA: No opacities, masses or pneumothorax. No pleural effusion. MEDIASTINUM AND HILAR STRUCTURES: No masses. Contour normal. HEART AND VASCULAR STRUCTURES: Heart normal in size. Normal vasculature. BONES: No acute findings. HARDWARE: Injection port on the right. OTHER: No other significant finding. IMPRESSION: NO ACUTE RADIOGRAPHIC FINDING IN THE CHEST. TECHNICAL DOCUMENTATION: JOB ID: [id number] [employer]- All Rights Reserved Reading location - IP/workstation name: [email or web address]
[2019-07-04] MEDS ORDERED: FENTANYL CITRATE INJ/PF 100 MCG/2 ML AMPUL IV ONE (16:56)
[2019-07-04] MEDS ORDERED: METOCLOPRAMIDE HCL INJ/PF 10 MG/2 ML SDV IV ONE (17:01)
--- NOTE | 2019-07-04 17:02 | ER Document Report ---
ED GI/ - General Chief Complaint: Post Surgical Pain Stated Complaint: POST SURGICAL COMPLICATION Time Seen by Provider: 07/04/19 13:15 Primary Care Provider: RANDI CANCHOLA MD [Primary Care Provider] - Follow up as needed Mode of Arrival: Ambulatory Notes: Patient is a 79-year-old male who comes in complaining of pain all over, nausea and vomiting. Patient had a gastrectomy due to gastric tumor and was released from [facility] yesterday. Patient is complaining of muscle cramping and aching. He does not have abdominal pain or chest pain. Patient states that he has been dry heaving. States that he had a Can catheter placed and replaced 5 times while in the hospital. Denies any dysuria or back pain. Patient had tube feeds started at home yesterday and this morning woke up not feeling well and dry heaving. States that he has had normal bowel movements although they have been watery. States that he has been passing gas. Denies any cough or trouble breathing. Patient was possibly on opiate pain medication in the hospital and was unable to tolerate it today. Describes that he feels like he is salivating and has a prickly sensation along his skin. TRAVEL OUTSIDE OF THE [place] IN LAST 30 DAYS: No - HPI Patient complains to provider of: Other Onset: This morning Timing/Duration: Gradual Quality of pain: Achy Severity at maximum: Mild Severity in ED: Mild Associated symptoms: Vomiting Exacerbated by: Other - tube feeds - Related Data Allergies/Adverse Reactions: No Known Allergies Allergy (Verified 12/26/18 06:37) Past Medical History - General Information source: Patient - Social History Smoking Status: Never Smoker Chew tobacco use (# tins/day): No Frequency of alcohol use: None Drug Abuse: None Family History: Reviewed & Not Pertinent Patient has suicidal ideation: No Patient has homicidal ideation: No - Past Medical History Cardiac Medical History: Denies: Hx Coronary Artery Disease, Hx Heart Attack, Hx Hypertension Pulmonary Medical History: Denies: Hx Asthma, Hx Bronchitis - h/o frequent bronchitis, Hx COPD, Hx Pneumonia Neurological Medical History: Denies: Hx Cerebrovascular Accident, Hx Seizures Renal/ Medical History: Denies: Hx Peritoneal Dialysis GI Medical History: Reports: Other - gastric tumor. Denies: Hx Hepatitis, Hx Hiatal Hernia, Hx Ulcer Musculoskeletal Medical History: Denies Hx Arthritis Infectious Medical History: Denies: Hx Hepatitis Past Surgical History: Reports: Hx Abdominal Surgery - stomach/part of esophagus removed r/t cancer. Denies: Hx Open Heart Surgery, Hx Pacemaker - Immunizations Hx Diphtheria, Pertussis, Tetanus Vaccination: Yes Hx Pneumococcal Vaccination: 11/20/16 Review of Systems - Review of Systems Constitutional: Chills, Diaphoresis, Malaise EENT: See HPI Cardiovascular: No symptoms reported Respiratory: No symptoms reported Gastrointestinal: No symptoms reported Genitourinary: No symptoms reported Male Genitourinary: No symptoms reported Musculoskeletal: See HPI Skin: See HPI Hematologic/Lymphatic: No symptoms reported Neurological/Psychological: No symptoms reported Physical Exam - Vital signs Vitals: Temp Pulse Resp BP Pulse Ox 97.5 F 95 20 158/62 H 99 07/04/19 13:03 07/04/19 13:03 07/04/19 13:03 07/04/19 13:03 07/04/19 13:03 Interpretation: Normal - General General appearance: Appears well, Alert - HEENT Head: Normocephalic, Atraumatic Eyes: Normal Pupils: PERRL - Respiratory Respiratory status: No respiratory distress Chest status: Nontender Breath sounds: Normal Chest palpation: Normal - Cardiovascular Rhythm: Regular Heart sounds: Normal auscultation Murmur: No - Abdominal Inspection: Normal Distension: No distension Bowel sounds: Normal Tenderness: Nontender Organomegaly: No organomegaly - Back Back: Normal, Nontender - Extremities General upper extremity: Normal inspection, Nontender, Normal color, Normal ROM, Normal temperature General lower extremity: Normal inspection, Nontender, Normal color, Normal ROM, Normal temperature, Normal weight bearing. No: Claudia's sign - Neurological Neuro grossly intact: Yes Cognition: Normal Orientation: AAOx4 [place] Coma Scale Eye Opening: Spontaneous [place] Coma Scale Verbal: Oriented [place] Coma Scale Motor: Obeys Commands [place] Coma Scale Total: 15 Speech: Normal Motor strength normal: LUE, RUE, LLE, RLE Sensory: Normal - Psychological Associated symptoms: Normal affect, Irritable - Skin Skin Temperature: Warm Skin Moisture: Diaphoretic Skin Color: Normal, Flushed Course - Re-evaluation Re-evalutation: 07/04/19 17:02 Spoke with [facility] transfer center regarding patient. They will discuss with the surgeon and call me back. 18:00 Patient discussed with [facility] transfer center. Surgeon would like patient excepted to the emergency department. Discussed with Dr. Price in the emergency department who will accept patient for transfer. Advises CT abdomen and pelvis. 19:30 CT abdomen pelvis with postoperative findings and nothing acute. 07/04/19 21:01 Transfer is here for patient. Stable at the time of transport. Patient is a 79-year-old male who comes in complaining of myalgias, prickling sensation, salivating, and dry heaving. Patient had recent gastrectomy was discharged from [facility] yesterday. Blood work benign. No elevated lactic. Chest x-ray clear. Urine with no evidence for infection but positive ketones. Samara ent feels better with fluids, nausea medication and a small dose of fentanyl. He has had resolution of his symptoms. CT abdomen pelvis within normal limits. Benign abdominal exam. Concerned that patient may have some opiate withdrawal symptoms. He has been discussed with his surgeon by the [facility] transfer center. I spoke with the ER physician and patient will be transferred there for further ev aluation and continuity with his physician. Stable for transport. Have had a lengthy discussion with this patient regarding his work-up. - Vital Signs Vital signs: Temp Pulse Resp BP Pulse Ox 97.5 F 95 14 98/61 L 99 07/04/19 13:03 07/04/19 13:03 07/04/19 19:49 07/04/19 19:49 07/04/19 19:49 - Laboratory Result Diagrams: 07/04/19 13:45 07/04/19 13:45 Laboratory results interpreted by me: 07/04/19 07/04/19 07/04/19 13:45 13:45 16:10 RBC 3.46 L Hgb 11.7 L Hct 35.0 L MCV 101 H MCH 33.8 H RDW 14.3 H Seg Neutrophils % 87.0 H Lymphocytes % 7.3 L Carbon Dioxide 21 L Glucose 155 H Urine Glucose (UA) 50 H Urine Ketones 20 H Critical Care Note - Critical Care Note Total time excluding time spent on procedures (mins): 90 - Evaluation and management of postoperative pain, nausea vomiting, coordination of transfer, counseling of patient and family Discharge - Discharge Clinical Impression: Postoperative nausea, Dehydration Condition: Stable Disposition: [place]
[2019-07-04 17:22] LABS: APPEARANCE,URINE SLIGHTLY-CLOUDY; BILIRUBIN,URINE NEGATIVE (NEGATIVE); COLOR,URINE YELLOW; GLUCOSE, URINE 50 mg/dL (NEGATIVE); KETONES,URINE 20 mg/dL (NEGATIVE); LEUKOCYTE ESTERASE,URINE NEGATIVE (NEGATIVE); NITRITE,URINE NEGATIVE (NEGATIVE); PROTEIN,URINE NEGATIVE (NEGATIVE); URINE SPECIFIC GRAVITY 1.014; UROBILINOGEN,URINE NEGATIVE mg/dL (<2.0)
--- NOTE | 2019-07-04 18:31 | RADIOLOGY REPORT (SQ) ---
EXAM DESCRIPTION: CT ABD/PELVIS WITH IV ONLY COMPLETED DATE/TIME: 07/04/2019 6:06 pm REASON FOR STUDY: recent gastrectomy, N/V COMPARISON: 12/28/2018 TECHNIQUE: CT scan of the abdomen and pelvis performed using helical scanning technique with dynamic intravenous contrast injection. No oral contrast. Images reviewed with lung, soft tissue, and bone windows. Reconstructed coronal and sagittal MPR images reviewed. Delayed images for evaluation of the urinary system also acquired. All images stored on PACS. All CT scanners at this facility use dose modulation, iterative reconstruction, and/or weight based d osing when appropriate to reduce radiation dose to as low as reasonably achievable (ALARA). [facility]: Dose Right [facility]: CareDose [facility]: Dose Right [facility]: Teradose 4D [facility]: [employer] CONTRAST TYPE AND DOSE: contrast/concentration: Isovue 350.00 mg/ml; Total Contrast Delivered: 73.0 ml; Total Saline Delivered: 66.0 ml RENAL FUNCTION: GFR > 60. RADIATION DOSE: CT Rad equipment meets quality standard of care and radiation dose reduction techniq ues were employed. CTDIvol: 5.0 - 6.0 mGy. DLP: 600 mGy-cm.. LIMITATIONS: None. FINDINGS: LOWER CHEST: Bibasilar scarring or atelectasis. LIVER: Normal size. No masses. No dilated ducts. SPLEEN: Normal size. No focal lesions. PANCREAS: No masses. No significant calcifications. No adjacent inflammation or peripancreatic fluid collections. Pancreatic duct not dilated. GALLBLADDER: Surgically absent. ADRENAL GLANDS: No significant masses or asymmetry. RIGHT KIDNEY AND URETER: No solid masses. No significant calcifications. No hydronephrosis or hyd roureter. LEFT KIDNEY AND URETER: No solid masses. No significant calcifications. No hydronephrosis or hydr oureter. AORTA AND VESSELS: No aneurysm. No dissection. Renal arteries, SMA, celiac without stenosis. RETROPERITONEUM: No retroperitoneal adenopathy, hemorrhage or masses. BOWEL AND PERITONEAL CAVITY: Postoperative findings of gastrectomy with small bowel anastomosis or co nduit. Tiny focus of intra-abdominal free air in the left upper quadrant about the liver tip (series 3, image 32), possibly related to recent surgery. There is a left hemiabdomen percutaneous jejunosto my tube. APPENDIX: Not clearly visualized. PELVIS: No mass. No free fluid. Normal bladder. ABDOMINAL WALL: No masses. No hernias. There is subcutaneous emphysema about the right hemiabdomen i n keeping with recent surgery. BONES: No significant or acute findings. OTHER: No other significant finding. IMPRESSION: 1. Postoperative findings of gastrectomy with a small bowel anastomosis or conduit. Amor wel anastomoses may be further evaluated by fluoroscopy or endoscopy if desired. Tiny focus of intra -abdominal free air in the left upper quadrant about the liver tip (series 3, image 32), possibly rel ated to recent surgery. There is no definite evidence of anastomotic leak or obstruction. 2. Subcutaneous emphysema about the right hemiabdomen, in keeping with recent surgery. 3. Left hemiabdomen percutaneous jejunostomy tube. TECHNICAL DOCUMENTATION: JOB ID: [id number] Quality ID # [id number]: Final reports with documentation of one or more dose reduction techniques (e.g., Au tomated exposure control, adjustment of the mA and/or kV according to patient size, use of iterative reconstruction technique) 2010 [email or web address]- All Rights Reserved Reading location - IP/workstation name: [email or web address]
[2019-07-04] MEDS ORDERED: RINGERS SOLUTION,LACTATED 1,000 ML IV SCH (19:00)
[2019-07-04 21:12] VITALS: BP 109/69
== END 2019-07-04 21:20 | disposition short-term general hospital (02) ==
LOC: ER 12:58
DX: R11.2 Nausea with vomiting, unspecified (principal); E86.0 Dehydration; R25.2 Cramp and spasm; M79.10 Myalgia, unspecified site; G89.18 Other acute postprocedural pain; R20.2 Paresthesia of skin; R61 Generalized hyperhidrosis; R53.81 Other malaise; R68.83 Chills (without fever); Z90.3 Acquired absence of stomach [part of]; Z90.49 Acquired absence of other specified parts of digestive tract
CPT/HCPCS: 99291; 99292; 96361; 96374; 96375; 36415; 83690; 84443; 85025; 80053; 81001; 84484; 83605; 71045; 74177; J3010; J2765; J2405; J7030

== ENCOUNTER → 2020-07-07 | Outpatient (CLI) | payer MEDICARE, BC ==
--- NOTE | 2020-07-08 17:06 | RADIOLOGY REPORT (SQ) ---
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 Recurrent adenocarcinoma on endoscopy at the anastomotic junction on endoscopy performed in May 2020. Restaging. COMPARISON: CT abdomen and pelvis, 07/04/2019. PET CT, 01 06 2019 RADIONUCLIDE AND DOSE: 11.44 mCi F18 FDG The route of agent administration: Intravenous FASTING BLOOD SUGAR: 107 mg/dl CONTRAST TYPE AND DOSE: No CT contrast given. TECHNIQUE: Blood glucose level was verified. Above dose of FDG was injected intravenously. 2-D seg mented attenuation correction images were obtained from the base of the skull to the midthighs. Nonc ontrast CT images were obtained for attenuation correction and fusion with emission images. CT image s were performed without oral or intravenous contrast and are not sensitive for parenchymal lesions. A series of overlapping emission PET images were obtained. Images reviewed and manipulated at [facility] work station by the radiologist. Images stored on PACS. LIMITATIONS: None. FINDINGS: HEAD AND NECK: No areas of abnormal metabolic activity in the soft tissues of the head and neck. CHEST: No areas of abnormal metabolic activity in the chest. ABDOMEN AND PELVIS: There is mild hypermetabolic activity at the gastroesophageal anastomosis, with S UV 4.0 just above the anastomosis and SUV 3.2 at the surgical anastomosis. Finding corresponds with the known recurrence at the anastomosis. There is a new right common iliac lymph node measuring 1.4 x 0.6 cm demonstrating hypermetabolic activity SUV 3.9 (image 169). Expected physiologic activity is present in the genitourinary system and bowel. Background hepatic activity SUV 2.5. PROXIMAL LOWER EXTREMITIES: No areas of abnormal metabolic activity. BONES: Interval placement of an intramedullary steven and pin fixation in the right femur since previous examination. There is no underlying hypermetabolic lesion. No evidence of osseous metastasis. ADDITIONAL CT FINDINGS: Right MediPort catheter with tip at the cavoatrial junction new from prior. 7 mm noncalcified pulmonary nodule in the right upper lobe stable from previous, probably below detec tion threshold on PET, however given stability may be benign. There is an adjacent 3 mm solid nodule in the medial right upper lobe. Subpleural reticulation and ground-glass attenuation at the lung ba ses has progressed since previous examination. Patchy areas of tree-in-bud nodularity and ground-gla ss attenuation in the lower lobes bilaterally, left greater than right, may represent sequelae from a spiration. New small left pleural effusion. Small pericardial effusion/ pericardial thickening. OTHER: No other significant findings. IMPRESSION: 1. Hypermetabolic activity at the gastroesophageal anastomosis corresponding to the known recurrence at the anastomotic suture. 2. New hypermetabolic right common iliac lymph node, suspicious for metastasis. 3. A 7 mm right upper lobe pulmonary nodule demonstrates no significant FDG uptake, however may be be low the threshold for detection on PET. This remains indeterminate. 4. Developing patchy ground-glass and nodular opacities in the lower lobes bilaterally with new left pleural effusion. Finding may represent sequelae from aspiration/aspiration pneumonitis. No signifi cant metabolic activity in the effusion or lower lobes. 5. Interval ORIF right femur, without evidence for underlying metastatic lesion. TECHNICAL DOCUMENTATION: JOB ID: [id number] 2010 [employer]- All Rights Reserved Reading location - IP/workstation name: [email or web address]
== END ==
LOC: RAD 10:46
PROVIDERS: ATTEND Internal Medicine
DX: C16.0 Malignant neoplasm of cardia (principal)
CPT/HCPCS: 78815; A9552